=== PATIENT | female | born 1965 | race Caucasian/White ===

== ENCOUNTER 2016-11-01 11:06 | Emergency (ER) | payer MEDICARE, MEDICAID ==
[~2016-11-01] VITALS: Ht 167.6 cm; Wt 95.5 kg
[~2016-11-01 11:06] MED LIST: ALBUTEROL0.83 MG/ML IH; ALBUTEROL1.25 MG/3 IH; ALDACTONE; ASPIRIN 32325 MG/TAB PO; ASPIRIN 81M81 MG/TA2 PO; CHANTIX 1MG1 MG PO; CYCLOBENZAPRINE10 MG PO; DILAUDID 2MG/2 MG/M1 IJ; DOXYCYCLINE150 M1 PO; ECOTRIN325 MG PO; FLAGYL500 MG; FLEXERIL 1010 MG/TAB PO; HYDROCODONE BIT1 TA3 PO; IPRATROPIUM BROM3 M1 IH; K-LOR CON PO; LASIX 40MG TABL40 MG PO; LEVAQUIN 5500 MG/TA1 PO; LIPITOR20 MG PO; LORTAB 7.5/5001 TAB; LORTAB 7.5/5001 TAB PO; LYRICA 25MG CAP25 MG PO; LYRICA 50MG CAP50 MG PO; MEDROL 4MG DOSPA4 MG PO; NAPROSYN500 MG PO; NIASPAN 500MG500 MG PO; NORCO 325 MG-51 TAB PO; NORCO 325 MG-7.1 TAB PO; OXYGEN; OXYGEN IH; PERCOCET 325 MG1 TA2 PO; PHENERGAN W/CO120 ML PO; PREDNISONE20 MG PO; PRILOSEC 20MG20 MG PO; PROAIR; PROBIOTIC FORMU1 CAP PO; PULMICORT0.5 MG/21 IH; RELPAX; ROBAXIN 50500 MG/TAB PO; ROXICODONE 55 MG/TAB PO; RT SPIRIVA18 MCG; TOPROL XL 25MG25 MG PO; TOPROL XL25 MG PO; VALIUM 5MG T5 MG/TAB PO; VENTOLIN0.09 MG IH; ZITHROMAX Z PA250 MG PO; ZOFRAN 4MG T4 MG/TAB PO; ZOFRAN ODT4 MG PO; ZOLOFT100 MG PO; [UNRECOGNIZED DRUG - SUPPLY]; naproxen; prevacid; stomach med
[2016-11-01 11:10] VITALS: TEMP 97.1
[2016-11-01 11:33] LABS: BASO % 0.6 % (0.0-2.0); EOS # 0.3 (0.0-0.7); EOS % 4.5 % (0-4.0); GRAN # 3.4 (1.4-6.5); GRAN % 46.2 % (42.2-75.2); HEMATOCRIT 37.5 % (37.0-47.0); HEMOGLOBIN 12.8 g/dl (12.5-16.0); LYMPH # 2.8 (1.2-3.4); LYMPH % 38.7 % (20.0-51.0); MEAN CELL VOLUME 90 fl (80.0-100.0); MEAN CORPUSCULAR HEMOGLOBIN 31 pg (27.0-31.0); MEAN CORPUSCULAR HGB CONC 34 g/dl (33.0-37.0); MEAN PLATELET VOLUME 9.8 fl (7.4-10.4); MONO # 0.7 (0.1-0.6); MONO % 9.9 % (1.7-9.3); PLATELET COUNT 289 K/mm3 (130-400); RED BLOOD COUNT 4.17 M/mm3 (4.10-5.30); REDCELL DISTRIBUTION WIDTH-CV 13.2 % (11.5-14.5); WHITE BLOOD COUNT 7.3 K/mm3 (4.8-10.8)
[2016-11-01 11:43] LABS: ADJUSTED CALCIUM 10.1 mg/dL (8.4-10.2); ALANINE AMINOTRANSFERASE 49 U/L (9-52); ALKALINE PHOSPHATASE 134 U/L (50-136); ANION GAP 11 mmol/L (7-16); BILIRUBIN,TOTAL 0.8 mg/dL (0.0-1.0); BLOOD UREA NITROGEN 20 mg/dL (7-17); CALCIUM 10.1 mg/dL (8.4-10.2); CARBON DIOXIDE 33 mmol/L (22-30); CHLORIDE 97 mmol/L (98-107); CREATINE KINASE 72 U/L (30-135); CREATININE, serum 0.78 mg/dL (0.52-1.25); GLUCOSE 137 mg/dL (74-106); LIPASE 104 U/L (23-300); POTASSIUM 4.2 mmol/L (3.4-5.0); SODIUM 141 mmol/L (137-145); TOTAL PROTEIN 7.5 gm/dL (6.4-8.2)
[2016-11-01 11:55] LABS: B-TYPE NATRIURETIC PEPTIDE 26 pg/mL (0-125)
[2016-11-01 11:56] LABS: TROPONIN-I < 0.012 ng/mL (0.000-0.034)
[2016-11-01] MEDS ORDERED: CLARITIN 1010 MG/TAB PO (11:58)
[2016-11-01] MEDS ORDERED: PREDNISONE20 MG PO (12:43)
[2016-11-01] MEDS ORDERED: IPRATROPIUM BROM3 M1 IH (12:43)
[2016-11-01 13:05] VITALS: BP 116/74; PULSE 84
== END 2016-11-01 13:25 | disposition home or self-care (01) ==
LOC: COL.ER 11:06
PROVIDERS: Emergency Medicine
DX: J45.901 Unspecified asthma with (acute) exacerbation (principal); R07.81 Pleurodynia; I11.0 Hypertensive heart disease with heart failure; I50.9 Heart failure, unspecified; Z99.81 Dependence on supplemental oxygen
CPT/HCPCS: J2930

== ENCOUNTER → 2016-12-18 | Outpatient (CLI) | payer MEDICARE, MEDICAID ==
[~2016-12-18] MED LIST changes: +CLARITIN 1010 MG/TAB PO
== END ==
LOC: MC.RAD 14:40
DX: Z12.31 Encounter for screening mammogram for malignant neoplasm of breast (principal)

== ENCOUNTER 2016-12-31 13:00 | Outpatient (RCR) | payer MEDICARE, MEDICAID | END 2017-02-08 09:24 | disposition home or self-care (01) | LOC: WSPT 13:00 | DX: M54.5 Low back pain (principal); R10.2 Pelvic and perineal pain | CPT/HCPCS: G8978-GP; G8979-GP; G8980-GP ==

== ENCOUNTER → 2017-07-18 | Outpatient (CLI) | payer MEDICARE, MEDICAID | LOC: COL.RAD 14:20 | DX: N28.89 Other specified disorders of kidney and ureter (principal); S33.140A Subluxation of L4/L5 lumbar vertebra, initial encounter; Z98.1 Arthrodesis status; Z90.49 Acquired absence of other specified parts of digestive tract; Z90.710 Acquired absence of both cervix and uterus; Z87.442 Personal history of urinary calculi ==

== ENCOUNTER 2018-03-01 09:15 | Emergency (ER) | payer MEDICARE, MEDICAID ==
[~2018-03-01] VITALS: Ht 167.6 cm; Wt 90.9 kg
[~2018-03-01 09:15] MED LIST changes: +CEFTIN500 MG PO; +GLUCOPHAGE1000 MG PO; +MOBIC15 MG PO; +ZOVIRAX400 MG PO
[2018-03-01 09:42] VITALS: BP 139/85; TEMP 98.3
[2018-03-01] MEDS ORDERED: DOXYCYCLINE 10100 MG PO (10:41)
[2018-03-01 10:50] VITALS: PULSE 68
== END 2018-03-01 10:50 | disposition home or self-care (01) ==
LOC: COL.ER 09:15
DX: L03.116 Cellulitis of left lower limb (principal); E11.9 Type 2 diabetes mellitus without complications; I11.0 Hypertensive heart disease with heart failure; I50.9 Heart failure, unspecified; E78.5 Hyperlipidemia, unspecified; J45.909 Unspecified asthma, uncomplicated; Z87.442 Personal history of urinary calculi; Z79.82 Long term (current) use of aspirin; Z79.84 Long term (current) use of oral hypoglycemic drugs

== ENCOUNTER 2018-05-23 12:39 | Emergency (ER) | payer MEDICARE, MEDICAID ==
[~2018-05-23] VITALS: Ht 165.1 cm; Wt 90.9 kg
[~2018-05-23 12:39] MED LIST changes: +DOXYCYCLINE 10100 MG PO
[2018-05-23 12:48] VITALS: BP 126/84; TEMP 98.1
[2018-05-23] MEDS ORDERED: KADIAN30 MG PO (13:10)
[2018-05-23 14:07] VITALS: PULSE 86
== END 2018-05-23 14:08 | disposition home or self-care (01) ==
LOC: COL.ER 12:39
DX: S83.91XA Sprain of unspecified site of right knee, initial encounter (principal); Z79.82 Long term (current) use of aspirin; Z79.84 Long term (current) use of oral hypoglycemic drugs; X50.0XXA Overexertion from strenuous movement or load, initial encounter; Y92.009 Unspecified place in unspecified non-institutional (private) residence as the place of occurrence of the external cause
CPT/HCPCS: L1846

== ENCOUNTER 2018-08-11 00:21 | Emergency (ER) | payer MEDICARE, MEDICAID ==
[~2018-08-11] VITALS: Ht 167.6 cm; Wt 86.4 kg
[~2018-08-11 00:21] MED LIST changes: +KADIAN30 MG PO
[2018-08-11 00:28] VITALS: TEMP 97.9
[2018-08-11 00:53] LABS: BASO % 0.3 % (0.0-2.0); EOS # 0.3 (0.0-0.7); EOS % 3.6 % (0-4.0); GRAN # 4.2 (1.4-6.5); GRAN % 44.1 % (42.2-75.2); HEMATOCRIT 41.6 % (37.0-47.0); HEMOGLOBIN 13.7 g/dl (12.5-16.0); LYMPH # 4.2 (1.2-3.4); MEAN CELL VOLUME 90 fl (80.0-100.0); MEAN CORPUSCULAR HEMOGLOBIN 30 pg (27.0-31.0); MEAN CORPUSCULAR HGB CONC 33 g/dl (33.0-37.0); MEAN PLATELET VOLUME 10.2 fl (7.4-10.4); MONO # 0.7 (0.1-0.6); MONO % 7.8 % (1.7-9.3); PLATELET COUNT 357 K/mm3 (130-400)
[2018-08-11 01:04] LABS: ALBUMIN 4.2 gm/dL (3.5-5.0); BILIRUBIN,TOTAL 0.4 mg/dL (0.0-1.0); CALCIUM 9.8 mg/dL (8.4-10.2); CREATININE, serum 0.77 mg/dL (0.52-1.25); POTASSIUM 4.5 mmol/L (3.4-5.0); TOTAL PROTEIN 7.5 gm/dL (6.4-8.2)
[2018-08-11 01:30] LABS: COLLECTION METHOD CLEAN CATCH
[2018-08-11 01:42] LABS: PH 5 (5-8); SQUAMOUS EPITHELIAL None Seen /hpf; URINE APPEARANCE Clear; URINE BACTERIA None Seen /hpf; URINE BILIRUBIN Negative (NEGATIVE); URINE BLOOD Negative (NEGATIVE); URINE COLOR Yellow; URINE GLUCOSE Negative (NEGATIVE); URINE KETONE Negative (NEGATIVE); URINE LEUKOCYTE ESTERASE 3+ (NEGATIVE); URINE NITRATE Negative (NEGATIVE); URINE PROTEIN(semi-quant) Negative (NEGATIVE); URINE UROBILINOGEN Negative (NEGATIVE)
[2018-08-11] MEDS ORDERED: CEPHALEXIN500 M1 PO (02:31)
[2018-08-11] MEDS ORDERED: PERCOCET 325 MG1 TA2 PO (02:31)
[2018-08-11] MEDS ORDERED: ZOFRAN 4MG T4 MG/TAB PO (02:31)
[2018-08-11 02:58] VITALS: BP 123/87; PULSE 66
== END 2018-08-11 03:00 | disposition home or self-care (01) ==
LOC: COL.ER 00:21
PROVIDERS: Emergency Medicine
DX: N12 Tubulo-interstitial nephritis, not specified as acute or chronic (principal); J44.9 Chronic obstructive pulmonary disease, unspecified; I10 Essential (primary) hypertension; E78.5 Hyperlipidemia, unspecified; Z87.442 Personal history of urinary calculi; Z90.710 Acquired absence of both cervix and uterus; Z90.49 Acquired absence of other specified parts of digestive tract; Z87.891 Personal history of nicotine dependence; Z98.890 Other specified postprocedural states; Z79.82 Long term (current) use of aspirin; Z79.84 Long term (current) use of oral hypoglycemic drugs
CPT/HCPCS: A4216; J0696; J2270; J2405; J7030

== ENCOUNTER → 2018-12-31 | Outpatient (CLI) | payer MEDICARE, MEDICAID ==
[~2018-12-31] MED LIST changes: +CEPHALEXIN500 M1 PO
== END ==
LOC: MC.RAD 11:30
DX: Z12.31 Encounter for screening mammogram for malignant neoplasm of breast (principal)

== ENCOUNTER 2019-07-22 15:45 | Emergency (ER) | payer SELFPAY ==
[~2019-07-22] VITALS: Ht 167.6 cm; Wt 90.9 kg
[2019-07-22 15:59] VITALS: BP 136/82; TEMP 97.9
[2019-07-22] MEDS ORDERED: LIDODERM 5% PATC1 EA TP ×2 (17:41→18:08)
[2019-07-22] MEDS ORDERED: MEDROL 4MG DOSPA4 MG PO (17:41)
[2019-07-22 17:59] VITALS: PULSE 63
== END 2019-07-22 18:02 | disposition home or self-care (01) ==
LOC: COL.ER 15:45
DX: S16.1XXA Strain of muscle, fascia and tendon at neck level, initial encounter (principal); S39.012A Strain of muscle, fascia and tendon of lower back, initial encounter; E11.9 Type 2 diabetes mellitus without complications; I10 Essential (primary) hypertension; F17.210 Nicotine dependence, cigarettes, uncomplicated; Z79.82 Long term (current) use of aspirin; Z79.84 Long term (current) use of oral hypoglycemic drugs; V43.62XA Car passenger injured in collision with other type car in traffic accident, initial encounter
CPT/HCPCS: J1885

== ENCOUNTER 2019-08-23 09:17 | Emergency (ER) | payer MEDICARE, MEDICAID ==
[~2019-08-23] VITALS: Ht 160 cm; Wt 93.2 kg
[~2019-08-23 09:17] MED LIST changes: +LIDODERM 5% PATC1 EA TP
[2019-08-23 09:20] VITALS: TEMP 98.2
[2019-08-23] MEDS ORDERED: ZOVIRAX400 MG PO (10:14)
[2019-08-23] MEDS ORDERED: LIPITOR 40MG TA40 MG PO (10:17)
[2019-08-23] MEDS ORDERED: SINGULAIR 110 MG/TAB PO (10:19)
[2019-08-23] MEDS ORDERED: PRILOSEC 20MG20 MG PO ×2 (10:23→10:24)
[2019-08-23] MEDS ORDERED: CYMBALTA 20MG20 MG PO (10:28)
[2019-08-23] MEDS ORDERED: HCTZ 25MG TAB25 MG PO (10:29)
[2019-08-23] MEDS ORDERED: DOXYCYCLINE 10100 MG PO (10:29)
[2019-08-23] MEDS ORDERED: LEXAPRO 5MG5 MG PO (10:30)
[2019-08-23] MEDS ORDERED: DULCOLAX STOOL100 MG PO (10:31)
[2019-08-23] MEDS ORDERED: FLEXERIL 1010 MG/TAB PO (10:59)
[2019-08-23 11:10] VITALS: BP 117/68; PULSE 92
[2019-08-24] MEDS ORDERED: NORCO 325 MG-51 TAB PO (15:01)
[2019-08-24] MEDS ORDERED: INDOCIN50 MG PO (15:01)
== END 2019-08-23 11:25 | disposition home or self-care (01) ==
LOC: COL.ER 09:17
DX: M79.662 Pain in left lower leg (principal); M79.661 Pain in right lower leg; G62.9 Polyneuropathy, unspecified; M54.31 Sciatica, right side; Z79.82 Long term (current) use of aspirin; Z79.84 Long term (current) use of oral hypoglycemic drugs

== ENCOUNTER 2019-08-24 12:10 | Emergency (ER) | payer MEDICARE, MEDICAID ==
[~2019-08-24] VITALS: Ht 160 cm; Wt 93.2 kg
[~2019-08-24 12:10] MED LIST changes: +CYMBALTA 20MG20 MG PO; +DULCOLAX STOOL100 MG PO; +HCTZ 25MG TAB25 MG PO; +LEXAPRO 5MG5 MG PO; +LIPITOR 40MG TA40 MG PO; +SINGULAIR 110 MG/TAB PO
[2019-08-24 12:19] VITALS: BP 116/75
[2019-08-24 14:13] LABS: BASO % 0.3 % (0.0-2.0); EOS # 0.2 (0.0-0.7); EOS % 1.4 % (0-4.0); GRAN # 7.7 (1.4-6.5); HEMATOCRIT 41.3 % (37.0-47.0); HEMOGLOBIN 13.9 g/dl (12.5-16.0); LYMPH # 2.3 (1.2-3.4); LYMPH % 20.5 % (20.0-51.0); MEAN CELL VOLUME 91 fl (80.0-100.0); MEAN CORPUSCULAR HEMOGLOBIN 31 pg (27.0-31.0); MEAN CORPUSCULAR HGB CONC 34 g/dl (33.0-37.0); MEAN PLATELET VOLUME 9.9 fl (7.4-10.4); MONO # 1.2 (0.1-0.6); MONO % 10.4 % (1.7-9.3); PLATELET COUNT 302 K/mm3 (130-400); RED BLOOD COUNT 4.52 M/mm3 (4.10-5.30); REDCELL DISTRIBUTION WIDTH-CV 13.7 % (11.5-14.5)
[2019-08-24 14:36] LABS: ALBUMIN 4.6 gm/dL (3.5-5.0); BILIRUBIN,TOTAL 0.6 mg/dL (0.0-1.0); CALCIUM 10.2 mg/dL (8.4-10.2); CREATININE, serum 0.66 (0.52-1.25); POTASSIUM 3.8 mmol/L (3.4-5.0); URIC ACID 9.3 mg/dL (2.5-6.2)
[2019-08-24 14:39] LABS: ERYTHROCYTE SEDIMENTATION RATE 42 mm/hr (0-30)
[2019-08-24 14:47] LABS: C-REACTIVE PROTEIN 14.1 mg/dL (0.0-0.9)
[2019-08-24] MEDS ORDERED: INDOCIN50 MG PO (15:01)
[2019-08-24] MEDS ORDERED: NORCO 325 MG-51 TAB PO (15:01)
[2019-08-24 15:50] VITALS: PULSE 89; TEMP 98.2
== END 2019-08-24 15:50 | disposition home or self-care (01) ==
LOC: COL.ER 12:10
PROVIDERS: Physician Assistant
DX: M10.9 Gout, unspecified (principal); I10 Essential (primary) hypertension; F17.210 Nicotine dependence, cigarettes, uncomplicated; F31.9 Bipolar disorder, unspecified; F41.9 Anxiety disorder, unspecified; Z87.442 Personal history of urinary calculi; Z90.89 Acquired absence of other organs; Z79.82 Long term (current) use of aspirin; Z79.84 Long term (current) use of oral hypoglycemic drugs

== ENCOUNTER 2019-09-05 11:38 | Emergency (ER) | payer MEDICARE, MEDICAID ==
[~2019-09-05] VITALS: Ht 160 cm; Wt 93.2 kg
[~2019-09-05 11:38] MED LIST changes: +INDOCIN50 MG PO
[2019-09-05 11:59] VITALS: BP 117/68; TEMP 98
[2019-09-05] MEDS ORDERED: NORCO 325 MG-51 TAB PO (15:11)
[2019-09-05] MEDS ORDERED: COLCRYS0.6 MG PO (15:11)
[2019-09-05 15:30] VITALS: PULSE 91
== END 2019-09-05 15:30 | disposition home or self-care (01) ==
LOC: COL.ER 11:38
DX: M25.571 Pain in right ankle and joints of right foot (principal); R22.41 Localized swelling, mass and lump, right lower limb; I11.0 Hypertensive heart disease with heart failure; I50.9 Heart failure, unspecified; E78.5 Hyperlipidemia, unspecified; E11.9 Type 2 diabetes mellitus without complications; F17.210 Nicotine dependence, cigarettes, uncomplicated; F31.9 Bipolar disorder, unspecified; G43.909 Migraine, unspecified, not intractable, without status migrainosus; Z90.710 Acquired absence of both cervix and uterus; Z90.89 Acquired absence of other organs; Z79.82 Long term (current) use of aspirin; Z79.84 Long term (current) use of oral hypoglycemic drugs

== ENCOUNTER 2019-09-14 14:30 | Outpatient (RCR) | payer MEDICARE, MEDICAID ==
[~2019-09-14 14:30] MED LIST changes: +COLCRYS0.6 MG PO
== END 2019-09-16 10:25 | disposition home or self-care (01) ==
LOC: WSC 14:30
DX: M51.36 Other intervertebral disc degeneration, lumbar region (principal); V89.2XXA Person injured in unspecified motor-vehicle accident, traffic, initial encounter

== ENCOUNTER 2019-10-17 14:21 | Emergency (ER) | payer MEDICARE, MEDICAID ==
[~2019-10-17] VITALS: Ht 165.1 cm; Wt 95.6 kg
[2019-10-17 14:23] VITALS: TEMP 98.5
[2019-10-17] MEDS ORDERED: DOXYCYCLINE 10100 MG PO (14:55)
[2019-10-17 15:11] VITALS: BP 142/100; PULSE 86
== END 2019-10-17 15:15 | disposition home or self-care (01) ==
LOC: COL.ER 14:21
DX: L02.416 Cutaneous abscess of left lower limb (principal); L03.116 Cellulitis of left lower limb; J44.9 Chronic obstructive pulmonary disease, unspecified; F17.210 Nicotine dependence, cigarettes, uncomplicated; Z90.710 Acquired absence of both cervix and uterus; Z90.89 Acquired absence of other organs

== ENCOUNTER → 2020-10-18 | Outpatient (CLI) | payer MEDICARE, MEDICAID ==
[~2020-10-18] MED LIST changes: +ALDACTONE50 MG PO; +COLACE 100100 MG/CAP PO; +CYMBALTA 60MG60 MG PO; +ELIMITE TOP; +INCRUSE EL62.5 MCG/A IH; +LOPRESSOR 225 MG/TAB PO; +MAG-OX 400400 MG/TAB PO; +RT ADVAIR 228 DISKUS IH; +RT ALBUTER2.5 MG/0.5 IH; +ZANAFLEX2 MG PO; +ZYLOPRIM 100MG100 MG PO
== END ==
LOC: COL.RAD 12:58
DX: M48.061 Spinal stenosis, lumbar region without neurogenic claudication (principal); Z98.1 Arthrodesis status; Z98.890 Other specified postprocedural states
CPT/HCPCS: A9585

== ENCOUNTER 2020-12-27 10:31 | Outpatient (CLI) | payer MEDICARE, MEDICAID ==
[2020-12-27] VITALS (57 sets, daily range): BP systolic 111–120; BP diastolic 75–78; PULSE 73–75; TEMP 98.7; O2SAT 91–97
[~2020-12-27] VITALS: Ht 165.1 cm; Wt 81.2 kg
== END 2020-12-27 13:15 | disposition home or self-care (01) ==
LOC: EUO 10:31
DX: E83.42 Hypomagnesemia (principal)
CPT/HCPCS: J3475

== ENCOUNTER 2021-01-25 13:45 | Outpatient (RCR) | payer MEDICARE, MEDICAID | END 2021-01-30 | disposition home or self-care (01) | LOC: WSPT | DX: M48.061 Spinal stenosis, lumbar region without neurogenic claudication (principal); M54.42 Lumbago with sciatica, left side; M54.41 Lumbago with sciatica, right side | CPT/HCPCS: G0283-GP ==

== ENCOUNTER 2021-07-11 14:11 | Emergency (ER) | payer MEDICARE, MEDICAID ==
[~2021-07-11] VITALS: Ht 162.6 cm; Wt 82.3 kg
[2021-07-11 14:44] VITALS: TEMP 98.1
[2021-07-11 15:39] LABS: BASO # 0.1 (0.0-0.2); BASO % 0.4 % (0.0-2.0); EOS # 0.3 (0.0-0.7); EOS % 2.2 % (0-4.0); GRAN # 9.2 (1.4-6.5); GRAN % 68.9 % (42.2-75.2); HEMATOCRIT 39.6 % (37.0-47.0); HEMOGLOBIN 13.2 g/dl (12.5-16.0); LYMPH # 2.7 (1.2-3.4); LYMPH % 20.4 % (20.0-51.0); MEAN CELL VOLUME 90 fl (80.0-100.0); MEAN CORPUSCULAR HEMOGLOBIN 30 pg (27.0-31.0); MEAN CORPUSCULAR HGB CONC 33 g/dl (33.0-37.0); MEAN PLATELET VOLUME 10.6 fl (7.4-10.4); MONO % 7.7 % (1.7-9.3); PLATELET COUNT 376 K/mm3 (130-400); RED BLOOD COUNT 4.38 M/mm3 (4.10-5.30); REDCELL DISTRIBUTION WIDTH-CV 15.1 % (11.5-14.5)
[2021-07-11 15:56] LABS: ALBUMIN 4.8 gm/dL (3.5-5.0); BILIRUBIN,TOTAL 0.4 mg/dL (0.0-1.0); CALCIUM 10.3 mg/dL (8.4-10.2); CREATININE, serum 0.75 (0.52-1.25); POTASSIUM 3.9 mmol/L (3.4-5.0); TOTAL PROTEIN 8.3 gm/dL (6.4-8.2)
[2021-07-11] MEDS ORDERED: LYRICA 100MG C100 M1 PO (16:24)
[2021-07-11] MEDS ORDERED: ZYLOPRIM 100MG100 MG PO (16:26)
[2021-07-11] MEDS ORDERED: CELEBREX 1100 MG/CAP PO (16:28)
[2021-07-11] MEDS ORDERED: JANUVIA 100MG100 MG PO (16:28)
[2021-07-11] MEDS ORDERED: RT ADVAIR 228 DISKUS IH (16:29)
[2021-07-11] MEDS ORDERED: PROTONIX 40MG T40 MG PO (16:29)
[2021-07-11] MEDS ORDERED: ASPIRIN 81M81 MG/TA2 PO (16:29)
[2021-07-11] MEDS ORDERED: CHANTIX 1MG1 MG PO (16:30)
[2021-07-11] MEDS ORDERED: HCTZ 25MG TAB25 MG PO (16:30)
[2021-07-11] MEDS ORDERED: LIPITOR 40MG TA40 MG PO (16:30)
[2021-07-11] MEDS ORDERED: ZITHROMAX Z PA250 MG PO (18:06)
[2021-07-11] MEDS ORDERED: IPRATROPIUM BROM3 M1 IH (18:06)
[2021-07-11] MEDS ORDERED: PREDNISONE20 MG PO (18:06)
[2021-07-11 18:26] VITALS: BP 150/89; PULSE 98
== END 2021-07-11 18:26 | disposition home or self-care (01) ==
LOC: COL.ER 14:11
PROVIDERS: Nurse Practitioner Primary Care
DX: J44.1 Chronic obstructive pulmonary disease with (acute) exacerbation (principal); F17.210 Nicotine dependence, cigarettes, uncomplicated; Z79.899 Other long term (current) drug therapy; Z20.822 Contact with and (suspected) exposure to COVID-19
CPT/HCPCS: J0696; J2930; J7030

== ENCOUNTER 2021-11-19 07:29 | Inpatient (IN) | payer MEDICARE, MEDICAID ==
[~2021-11-19] VITALS: Ht 162.6 cm; Wt 84.1 kg
[~2021-11-19 07:29] MED LIST changes: +CELEBREX 1100 MG/CAP PO; +JANUVIA 100MG100 MG PO; +LYRICA 100MG C100 M1 PO; +PROTONIX 40MG T40 MG PO
[2021-11-19 07:58] LABS: BASO % 0.3 % (0.0-2.0); EOS # 0.5 K/mm3 (0.0-0.7); EOS % 5.4 % (0.0-4.0); GRAN # 4.4 K/mm3 (1.4-6.5); GRAN % 47.4 % (42.2-75.2); HEMATOCRIT 44.4 % (37.0-47.0); HEMOGLOBIN 14.1 g/dl (12.5-16.0); LYMPH # 3.7 K/mm3 (1.2-3.4); LYMPH % 39.1 % (20.0-51.0); MEAN CELL VOLUME 90 fl (80.0-100.0); MEAN CORPUSCULAR HEMOGLOBIN 29 pg (27-31); MEAN CORPUSCULAR HGB CONC 32 g/dl (33.0-37.0); MEAN PLATELET VOLUME 10.8 fl (7.4-10.4); MONO # 0.7 K/mm3 (0.1-0.6); MONO % 7.7 % (1.7-9.3); PLATELET COUNT 323 K/mm3 (130-400); RED BLOOD COUNT 4.95 M/mm3 (4.10-5.30); REDCELL DISTRIBUTION WIDTH-CV 14.6 % (11.5-14.5)
[2021-11-19 08:14] LABS: BILIRUBIN,TOTAL 0.4 mg/dL (0.2-1.2); CALCIUM 10.8 mg/dL (8.4-10.2); CREATININE, serum 1.08 mg/dL (0.57-1.11); TOTAL PROTEIN 7.9 gm/dL (6.2-8.1)
[2021-11-19 09:14] LABS: COLLECTION METHOD CLEAN CATCH
[2021-11-19 09:26] LABS: PH 5 (5-8); SQUAMOUS EPITHELIAL None Seen /hpf (0-10); URINE APPEARANCE Clear (CLEAR/HAZY); URINE BACTERIA Rare /hpf (NONE SEEN); URINE BILIRUBIN Negative (NEGATIVE); URINE BLOOD Negative (NEGATIVE); URINE COLOR Yellow (YELLOW); URINE GLUCOSE Negative (NEGATIVE); URINE KETONE Negative (NEGATIVE); URINE LEUKOCYTE ESTERASE 1+ (NEGATIVE); URINE NITRATE Negative (NEGATIVE); URINE PROTEIN(semi-quant) Negative (NEGATIVE); URINE RBC 0-2 /hpf (0-2); URINE UROBILINOGEN Negative (NEGATIVE)
[2021-11-19] MEDS ORDERED: AMOXICILLIN 8751 TAB PO (10:00)
[2021-11-19] MEDS ORDERED: PREDNISONE20 MG PO (10:00)
[2021-11-19 18:03] VITALS: BP 95/64; PULSE 73; TEMP 97.9
--- NOTE | 2021-11-19 18:56 | NUR ---
PT ARRIVED TO ROOM 323 VIA WHEELCHAIR. VSS. ON 6 L HIGH FLOW. A&O. ORIENTED PATIENT TO ROOM AND CALL LIGHT, FALL PRECAUTIONS IN PLACE. PT DENIES NEEDS AT THIS TIME.
[2021-11-19 20:30] VITALS: BP 125/73; PULSE 82; TEMP 98.3
--- NOTE | 2021-11-19 22:28 | NUR ---
Patient assessed around 2200. Had been given PRN [place] as requested for pain per orders. Reports medication was effective. On oxygen at 8 L/min via NC. Reports SOB and dyspnea with exertion. In bed with call light within reach.
[2021-11-20] VITALS (7 sets, daily range): BP systolic 98–124; BP diastolic 40–75; PULSE 73–89; TEMP 97.6–98.4
--- NOTE | 2021-11-20 05:13 | NUR ---
Continues on oxygen at 7 L/min via NC. Given PRN [place] for chronic back pain as requested throughout the night. Voices no further questions, needs, or concerns at this time. In bed with call light within reach.
[2021-11-20 06:39] LABS: HEMATOCRIT 39.7 % (37.0-47.0); HEMOGLOBIN 12.7 g/dl (12.5-16.0); MEAN CELL VOLUME 88 fl (80.0-100.0); MEAN CORPUSCULAR HEMOGLOBIN 28 pg (27-31); MEAN CORPUSCULAR HGB CONC 32 g/dl (33.0-37.0); MEAN PLATELET VOLUME 11.5 fl (7.4-10.4); PLATELET COUNT 326 K/mm3 (130-400); RED BLOOD COUNT 4.51 M/mm3 (4.10-5.30); REDCELL DISTRIBUTION WIDTH-CV 14.5 % (11.5-14.5)
[2021-11-20 06:54] LABS: CALCIUM 10.3 mg/dL (8.4-10.2); CREATININE, serum 1.08 mg/dL (0.57-1.11); POTASSIUM 4.2 mmol/L (3.5-4.5)
[2021-11-20 07:47] LABS: BAND 18 % (0-10); LYMPHOCYTE 6 % (20.0-51.0); NEUTROPHILS 76 % (42.0-75.2); PLATELET ESTIMATE NORMAL (NORMAL)
--- NOTE | 2021-11-20 09:57 | NUR ---
First visit from the channeler outsole. No needs right now.
--- NOTE | 2021-11-20 10:51 | NUR ---
Recording Clerk and social work student, Joshua met with patient to discuss discharge planning. Patient lives alone in [place] and sees Dr. Way for primary care. Patient obtains medications from [facility] with no difficulties. Patient has home oxygen and obtains supplies from [facility]. Patient uses a four wheeled walker at home for ambulation and also has a cane and nebulizer. Patient reports she is mostly independent with ADLS however her daughter, Raisa is her paid ocular care technician and assists her with bathing and sometimes dressing. Patient does not have Advance Directives. Patient is and has three living children: Raisa (ph#[phone]), Levar, and Дмитрий. Patient is not interested in designating DPOA-HC at this time. Patient reports she plans to return home upon discharge. SW spoke with Hospitalist about PT/OT orders. Discharge Plan: Home with paid caregiver support
--- NOTE | 2021-11-20 11:17 | NUR ---
Patient complaining of back pain, 6 out of 10. Attempted to provide relief with additional pillows to lower back. Pillows did not ease the pain. PRN narcotic was given. Call light within reach. No other complaints at this time.
--- NOTE | 2021-11-20 13:09 | NUR ---
Patient resting in bed, watching television. Head to toe assessment completed. Alert and oriented X3. Vital signs within normal limits, on 6 L of O2 via NC. Patient deals with chronic pain and complains of pain 3 out of 10. Patient tolerating oral meds and food well. IV is placed in right forearm. No complaints of N/V. Patient independent in room and is voiding. Patient on the floor for exacerbation of COPD and SOB. Patient does not express any other concerns at this time. Call light within reach.
--- NOTE | 2021-11-20 21:06 | NUR ---
Patient assessed around 1929. Alert and oriented x 4, and able to make needs known. Reported level 3 pain to back at that time. Peripheral INT to right forearm. On oxygen at 5 L/min via NC. Reports SOB is much better. Telemetry in place. Patient called and given PRN [place] for level 5 pain to back around 2099. Voices no further questions, needs, or concerns at this time. In bed with call light within reach.
[2021-11-21 03:54] VITALS: BP 124/73; PULSE 69; TEMP 98.3
--- NOTE | 2021-11-21 05:40 | NUR ---
Patient took Mcdade once this shift. Had ambulated in hallway in the night and requested motrin for headache, as she did not want to take Mcdade at that time. Called [facility], and order received for motrin, and given per orders. Voices no further questions, needs, or concerns at this time. In bed with call light within reach. Continues on oxygen at 5 L/min via NC. Voices no questions, needs, or concerns at this time. In bed with call light within reach.
[2021-11-21 07:25] LABS: BASO % 0.2 % (0.0-2.0); GRAN # 16.7 K/mm3 (1.4-6.5); GRAN % 86.6 % (42.2-75.2); HEMATOCRIT 39.7 % (37.0-47.0); HEMOGLOBIN 12.9 g/dl (12.5-16.0); LYMPH # 1.5 K/mm3 (1.2-3.4); LYMPH % 7.6 % (20.0-51.0); MEAN CELL VOLUME 87 fl (80.0-100.0); MEAN CORPUSCULAR HEMOGLOBIN 28 pg (27-31); MEAN CORPUSCULAR HGB CONC 33 g/dl (33.0-37.0); MEAN PLATELET VOLUME 11.5 fl (7.4-10.4); PLATELET COUNT 330 K/mm3 (130-400); RED BLOOD COUNT 4.56 M/mm3 (4.10-5.30); REDCELL DISTRIBUTION WIDTH-CV 14.7 % (11.5-14.5)
[2021-11-21 07:33] LABS: CALCIUM 10.1 mg/dL (8.4-10.2); CREATININE, serum 0.86 mg/dL (0.57-1.11); POTASSIUM 4.6 mmol/L (3.5-4.5)
[2021-11-21 07:44] VITALS: BP 131/69; PULSE 64; TEMP 98
--- NOTE | 2021-11-21 08:00 | NUR ---
PATIENT IS A&O. VSS ON TELE. 02 @ 5L PER NC TO KEEP SATS IN MID 90'S. PATIENT DENIES SOA. NOTED FC IN A&P LUNG FIELD BASES. PATIENT HAS HX OF COPD, ASTHMA AND IS A SMOKER. PATIENT REPORTS SHE WEARS 02 @ 3L AT HS AT HOME. PATIENT REQUESTING A PAIN PILL BEFORE THERAPY AND REPORTS SHE HAS CHRONIC PAIN. PT/OT CONSULTED. GAVE PRN NORCO, ONE TAB WITH AM MEDS. BREAKFAST TRAY AT BEDSIDE. NO C/O N/V. RIGHT IV TO INT. HEAD TO TOE ASSESSMENT COMPLETE. NO OTHER NEEDS AT THIS TIME. CALL LIGHT IN REACH.
--- NOTE | 2021-11-21 09:00 | NUR ---
PATIENT AMBULATING IN HALLWAY WITH PT.
[2021-11-21 11:19] VITALS: BP 115/68; PULSE 71; TEMP 97.8
[2021-11-21 15:06] VITALS: BP 119/55; PULSE 75; TEMP 98.5
--- NOTE | 2021-11-21 20:23 | NUR ---
PT IN BED, READY FOR HS MEDS AND PAIN PILL. MEDICATED WITH NORCO 5/325MG AT THIS TIME FOR CHRONIC BACK PAIN. HAS OXYGEN AT 5L/NC. REPORTS DYSPNEA WITH EXERTION. INT TO RFA, FLUSHES WELL. INDEPENDENT IN ROOM WITH WALKER.
[2021-11-21 20:37] VITALS: BP 121/67; PULSE 84; TEMP 97.9
[2021-11-22 00:01] VITALS: BP 122/72; PULSE 68; TEMP 98.4
--- NOTE | 2021-11-22 03:36 | NUR ---
MEDICATED WITH NORCO 1 TAB FOR CHRONIC PAIN. HAS BEEN UP WALKING IN HALLWAY WITHOUT OXYGEN, SAO2=83% ON ROOM AIR. WEARING 5L/NC WITH SAO2=93%.
[2021-11-22 04:32] VITALS: BP 138/79; PULSE 65; TEMP 97.8
[2021-11-22 07:26] VITALS: BP 142/79; PULSE 64; TEMP 98
[2021-11-22 08:51] LABS: BASO % 0.1 % (0.0-2.0); GRAN # 11.8 K/mm3 (1.4-6.5); GRAN % 81.8 % (42.2-75.2); HEMATOCRIT 39.5 % (37.0-47.0); HEMOGLOBIN 12.5 g/dl (12.5-16.0); LYMPH % 13.9 % (20.0-51.0); MEAN CELL VOLUME 89 fl (80.0-100.0); MEAN CORPUSCULAR HEMOGLOBIN 28 pg (27-31); MEAN CORPUSCULAR HGB CONC 32 g/dl (33.0-37.0); MONO # 0.5 K/mm3 (0.1-0.6); MONO % 3.5 % (1.7-9.3); PLATELET COUNT 328 K/mm3 (130-400); RED BLOOD COUNT 4.44 M/mm3 (4.10-5.30); REDCELL DISTRIBUTION WIDTH-CV 14.9 % (11.5-14.5)
[2021-11-22 09:05] LABS: CALCIUM 9.5 mg/dL (8.4-10.2); CREATININE, serum 0.98 mg/dL (0.57-1.11); POTASSIUM 3.9 mmol/L (3.5-4.5)
[2021-11-22 11:22] VITALS: BP 122/66; PULSE 66; TEMP 98.2
--- NOTE | 2021-11-22 13:59 | NUR ---
PATIENT ALERT AND ORIENTED X3. VSS. PATIENT HERE FOR COPD EXACERBATION. PATIENT'S WBC DECREASED TO 14.4. CONTINUE TO MONITOR. PATIENT STATING SHE IS IN PAIN AND REQUESTING PAIN MEDICATION. PATIENT GIVEN NORCO AT 0837. PATIENT IN BED RESTING WITH CALL LIGHT NEAR.
--- NOTE | 2021-11-22 14:58 | NUR ---
Sketch Maker met with patient who is set to discharge home today. Patient confirmed she has home oxygen established. SW presented and reviewed IM form with patient who verbalized understand and provided signature. SW placed form in chart and provided copy to patient. Discharge Plan: Home
[2021-11-22] MEDS ORDERED: SPIRIVA RE2.5 MCG/Ac IH (15:21)
[2021-11-22] MEDS ORDERED: PREDNISONE10 MG PO (15:23)
[2021-11-22 16:03] VITALS: BP 146/82; PULSE 73; TEMP 98
--- NOTE | 2021-11-22 16:12 | NUR ---
PATIENT WEARS 3L BASELINE, SHE ONLY REQ 3L WITH AMBULATION
--- NOTE | 2021-11-22 16:50 | NUR ---
PATIENT'S IV DC'D, WENT OVER PATIENT DISCHARGE INSTRUCTIONS, DISCUSSED NEW AND OLD MEDICATIONS, PATIENT UNDERSTOOD INSTRUCTIONS WITH NO FURTHER QUESTIONS. PATIENT DISCHARGED AND FAMILY HAD OXYGEN THERAPY SCHEDULED FOR HOME. PATIENT LEFT WITH FAMILY AT 1647.
== END 2021-11-22 16:47 | disposition home or self-care (01) | DRG 189 ==
LOC: COL.ER 07:29 → SURG 10:39
PROVIDERS: Personal Emergency Response Attendant; Physician Assistant; ADMIT Student in an Organized Health Care Education/Training Program
PROC: 5A0935A Assistance with Respiratory Ventilation, Less than 24 Consecutive Hours, High Flow/Velocity Cannula (ICD-10-PCS; principal; 2021-11-19)
DX: J96.01 Acute respiratory failure with hypoxia (principal); J44.1 Chronic obstructive pulmonary disease with (acute) exacerbation; E11.42 Type 2 diabetes mellitus with diabetic polyneuropathy; I10 Essential (primary) hypertension; G47.33 Obstructive sleep apnea (adult) (pediatric); F17.210 Nicotine dependence, cigarettes, uncomplicated; E78.5 Hyperlipidemia, unspecified; K21.9 Gastro-esophageal reflux disease without esophagitis; D72.829 Elevated white blood cell count, unspecified; T38.0X5A Adverse effect of glucocorticoids and synthetic analogues, initial encounter; Z20.822 Contact with and (suspected) exposure to COVID-19; Z79.84 Long term (current) use of oral hypoglycemic drugs; Z79.82 Long term (current) use of aspirin; Z23 Encounter for immunization
CPT/HCPCS: 99223-AI; 99232-AI; 99233-AI; 99239; J0456; J0696; J1650; J1815; J2920; J2930; J7050

== ENCOUNTER → 2022-03-12 | Outpatient (CLI) | payer MEDICARE, MEDICAID ==
[~2022-03-12] MED LIST changes: +AMOXICILLIN 8751 TAB PO; +PREDNISONE10 MG PO; +SPIRIVA RE2.5 MCG/Ac IH
== END ==
LOC: COL.RAD 12:45
DX: M47.22 Other spondylosis with radiculopathy, cervical region (principal); M48.02 Spinal stenosis, cervical region; M40.50 Lordosis, unspecified, site unspecified; M25.78 Osteophyte, vertebrae

== ENCOUNTER 2024-01-20 17:26 | Emergency (ER) | payer MEDICARE, MEDICAID ==
[~2024-01-20] VITALS: Ht 162.6 cm; Wt 90.5 kg
[~2024-01-20 17:26] MED LIST changes: +PREDNISONE50 MG PO
[2024-01-20 17:36] VITALS: TEMP 98.4
[2024-01-20] MEDS ORDERED: Albuterol/Ipratropium 3 MG-0.5 MG/3 ML Neb Soln IH ONE (18:00)
[2024-01-20] MEDS ORDERED: NS 1,000 ML IV ONE (18:00)
[2024-01-20 18:27] LABS: BASO % 0.4 % (0.0-2.0); EOS # 0.2 K/mm3 (0.0-0.7); EOS % 2.3 % (0.0-4.0); GRAN # 7.2 K/mm3 (1.4-6.5); GRAN % 71.1 % (42.2-75.2); HEMATOCRIT 45.1 % (37.0-47.0); HEMOGLOBIN 14.9 g/dl (12.5-16.0); LYMPH % 19.7 % (20.0-51.0); MEAN CELL VOLUME 93 fl (80.0-100.0); MEAN CORPUSCULAR HEMOGLOBIN 31 pg (27-31); MEAN CORPUSCULAR HGB CONC 33 g/dl (33.0-37.0); MONO # 0.6 K/mm3 (0.1-0.6); PLATELET COUNT 281 K/mm3 (130-400); RED BLOOD COUNT 4.86 M/mm3 (4.10-5.30); REDCELL DISTRIBUTION WIDTH-CV 14.6 % (11.5-14.5)
[2024-01-20 18:45] LABS: ACETONE,SERUM NEGATIVE
[2024-01-20 18:50] LABS: ALANINE AMINOTRANSFERASE 116 U/L (0-55); ALBUMIN 3.6 gm/dL (3.4-4.8); ALKALINE PHOSPHATASE 200 U/L (40-150); ANION GAP 16 mmol/L (7-16); AST,SGOT 59 U/L (5-34); BILIRUBIN,TOTAL 0.3 mg/dL (0.2-1.2); BLOOD UREA NITROGEN 18 mg/dL (10-20); CALCIUM 10.1 mg/dL (8.4-10.2); CHLORIDE 90 mmol/L (98-107); CREATININE, serum 1.55 mg/dL (0.57-1.11); POTASSIUM 3.8 mmol/L (3.5-4.5); SODIUM 134 mmol/L (136-145); TOTAL PROTEIN 7.2 gm/dL (6.2-8.1)
[2024-01-20 18:53] LABS: GLUCOSE 575 mg/dL (70-99)
[2024-01-20] MEDS ORDERED: Insulin Regular Human (NovoLIN R/HumuLIN R) SQ ONE (19:00)
[2024-01-20 21:10] VITALS: BP 149/89; PULSE 102
== END 2024-01-20 21:10 | disposition home or self-care (01) ==
LOC: COL.ER 17:26
PROVIDERS: Nurse Practitioner
DX: E11.65 Type 2 diabetes mellitus with hyperglycemia (principal); J44.9 Chronic obstructive pulmonary disease, unspecified; F17.210 Nicotine dependence, cigarettes, uncomplicated; Z99.81 Dependence on supplemental oxygen
CPT/HCPCS: J1815; J7030